=== PATIENT | male | born 1955 | race Hispanic/Latino ===

== ENCOUNTER 2018-02-21 08:16 | Day surgery (SDC) | payer MEDICARE ==
[2013-08-22 20:13] VITALS: BMI 50.2
[2018-02-21] MEDS ORDERED: Albuterol HFA 90 mcg/actuation (8 g) ONE (09:58)
[2018-02-21] MEDS ORDERED: Propofol 10 mg/ml Inj (20 ML) ONE (09:58)
[2018-02-21] MEDS ORDERED: Sodium Chloride 0.9% 1,000 ML IV SCH (10:45)
[2018-02-21 11:43] VITALS: BP 130/62; PULSE 87; RESP 15; TEMP 97.5; O2SAT 96
== END 2018-02-21 12:55 | disposition home or self-care (01) ==
LOC: ENDO 08:16
PROVIDERS: ATTEND Specialist
DX: Z12.11 Encounter for screening for malignant neoplasm of colon (principal); K63.5 Polyp of colon; K57.30 Diverticulosis of large intestine without perforation or abscess without bleeding; K64.8 Other hemorrhoids; F20.9 Schizophrenia, unspecified; G47.33 Obstructive sleep apnea (adult) (pediatric)
CPT/HCPCS: 45385; 88305; J2001; J2704; J7030; J7040